=== PATIENT | male | born 1945 | race Caucasian/White ===

== ENCOUNTER → 2019-01-27 14:58 | Outpatient (CLI) | payer MEDICARE, OTHER, SELFPAY ==
--- NOTE | 2019-01-27 15:00 | US_ITS ---
US scrotum HISTORY: Right-sided testicular pain and swelling ITS.REASON: SCROTAL SAC ENLARGEMENT ORDERING PHYSICIAN: West Oconnor MD PATIENT AGE: 73 years Comparison: None FINDINGS: There are large bilateral hydroceles. This makes evaluation of the testicles difficult. The right testicle is 4.4 x 2.2 x 3.8 cm. It was very difficult to demonstrate blood flow within the right testicle. Additional imaging performed with Valsalva did appear to demonstrate some blood flow in the right testicle. No obvious testicular mass. Palpable left testicle is 4.8 x 2.5 x 3.2 cm. No mass evident. Blood flow is present within the left testicle. The epididymides not well demonstrated. IMPRESSION Large bilateral hydroceles Difficulty in evaluation of the testicles. No obvious testicular mass. Blood flow within the right testicle was questionable.
== END ==
PROVIDERS: PCP Family Medicine; Visit Provider Family Medicine
DX: N50.89 Other specified disorders of the male genital organs (principal)
CPT/HCPCS: 76870

== ENCOUNTER → 2019-04-10 09:25 | Outpatient (CLI) | payer MEDICARE, OTHER, SELFPAY ==
--- NOTE | 2019-04-10 09:41 | XR_ITS ---
XR KUB HISTORY: ITS.REASON: ABNORMAL WEIGHT LOSS ORDERING PHYSICIAN: West Oconnor MD PATIENT AGE: 73 years COMPARISON: None FINDINGS: There is a mild amount of retained colonic feces. No intestinal obstruction apparent. Surgical clips are present in the right upper quadrant. There are multiple pelvic calcifications consistent with phleboliths. There has been total right hip prosthesis placement and a bipolar left hip prosthesis placement. IMPRESSION: No acute finding
--- NOTE | 2019-04-10 09:41 | XR_ITS ---
XR chest 2V HISTORY: ITS.REASON: ABNORMAL WEIGHT LOSS ORDERING PHYSICIAN: West Oconnor MD PATIENT AGE: 73 years COMPARISON: 01/09/2012 FINDINGS: The cardiomediastinal silhouette and pulmonary vascularity are within normal limits. There is a faint rounded opacity in the right apex overlying the first rib laterally and 8 mm. This could reduce to a developing pulmonary nodule or an overlying sclerotic lesion of the rib. Was not readily apparent on the previous exam. There are bilateral opacities overlying the lower lung zones consistent with nipple shadows. No acute bony abnormalities. IMPRESSION: No acute finding. Possible developing nodule versus rib lesion right apex. This could be better evaluated with CT if clinically desired.
[2019-04-10 09:54] LABS: Basophils % 0.6 % (0.1-2.0); Eosinophils # 0.2 K/mm3 (0.0-0.4); Eosinophils % 2.6 % (0.1-12.0); Hematocrit 45.4 % (42.0-52.0); Hemoglobin 15.2 g/dL (14.1-18.0); Lymphocytes # 1.6 K/mm3 (0.7-4.5); Lymphocytes % 22.9 % (10-50); Mean Corpuscular HGB Conc 33.4 g/dL (31.8-35.4); Mean Corpuscular Volume 89.6 fl (80-94); Monocytes # 0.4 K/mm3 (0.1-1.0); Monocytes % 6.5 % (1.7-9.3); Neutrophils # 4.6 K/mm3 (1.8-7.8); Neutrophils % 67.4 % (37.0-80.0); Platelet Count 211 K/mm3 (142-424); Red Blood Count 5.07 M/mm3 (4.60-6.20); Red Cell Distribution Width 12.5 % (11.5-17.5); White Blood Count 6.9 K/mm3 (4.8-10.8)
[2019-04-10 11:42] LABS: Alanine Aminotransferase 20 U/L (12-78); Albumin Level 3.5 gm/dL (3.4-5.0); Albumin/Globulin Ratio 1.1 (1.1-1.8); Alkaline Phosphatase 97 U/L (46-116); Amylase 45 U/L (25-115); Anion Gap 14.5 mEq/L (5-15); Aspartate Amino Transferase 15 U/L (15-37); Bilirubin,Total 0.5 mg/dL (0.2-1.0); Blood Urea Nitrogen 11 mg/dL (7-18); C-Reactive Protein 1.6 mg/L (0.0-0.9); Calcium 9.2 mg/dL (8.5-10.1); Carbon Dioxide 28 mmol/L (21.0-32.0); Chloride 102 mmol/L (98-107); Creatinine,Serum 0.98 mg/dL (0.70-1.30); Estimated Glomerular Filt Rate 75 ml/min (>60); GFR (African American) 90 ML/MIN (>60); Globulin 3.3 gm/dl (1.3-3.2); Glucose 94 mg/dL (74-106); Lipase 145 u/L (73-393); Potassium 4.5 mmoL/L (3.5-5.1); Prostate Specific Ag Screen 0.3 ng/mL (0.0-4.0); Sodium 140 mmol/L (136-145); Thyroid Stimulating Hormone 2.31 uIU/ml (0.358-3.740); Total Protein,Serum 6.8 gm/dL (6.4-8.2)
== END ==
PROVIDERS: PCP Family Medicine; Visit Provider Family Medicine
DX: R63.4 Abnormal weight loss (principal)
CPT/HCPCS: 36415; 71046; 74018; 80053; 82150; 83690; 84443; 85025; 86140; G0103

== ENCOUNTER → 2019-04-22 09:37 | Outpatient (CLI) | payer MEDICARE, OTHER, SELFPAY ==
[2019-04-22 10:55] LABS: Blood Urea Nitrogen 11 mg/dL (7-18); Creatinine,Serum 0.96 mg/dL (0.70-1.30); Estimated Glomerular Filt Rate 76 ml/min (>60); GFR (African American) 92 ML/MIN (>60)
== END ==
PROVIDERS: Visit Provider Family Medicine
DX: R91.1 Solitary pulmonary nodule (principal)
CPT/HCPCS: 36415; 82565; 84520

== ENCOUNTER → 2019-04-27 09:16 | Outpatient (CLI) | payer MEDICARE, OTHER, SELFPAY ==
--- NOTE | 2019-04-27 09:26 | CT_ITS ---
CT chest w con HISTORY: ITS.REASON: PULMONARY NODULES ORDERING PHYSICIAN: West Oconnor MD PATIENT AGE: 73 years COMPARISON: None TECHNIQUE: Axial images obtained following the administration of 75 mL of Optiray 350 . Sagittal, and coronal reformatted images are also generated and reviewed. All CT scans at the facility use one or more dose reduction, viz: automated exposure control, ma/kV adjustment per patient size (including targeted exams where dose is matched to indication, i.e. head), or iterative reconstruction technique. FINDINGS: No mediastinal or hilar mass or adenopathy. No evidence of aortic aneurysm or dissection. No central pulmonary embolus. There are coronary artery calcifications as well as calcifications of the aortic valve. There is a 7 mm noncalcified nodule in the right lower lobe axial image #53. The margins are somewhat obscured and slightly irregular. No previous exams are available for comparison at this institution. The remaining lungs are clear aside from minimal atelectatic or fibrotic changes in the left lower lobe. No effusions or infiltrates. No acute bony findings. There is mild diffuse thickening of the esophagus. Mild bilateral gynecomastia noted. IMPRESSION: 1. 7 mm noncalcified nodule right lower lobe is some minimal irregularity of the nodule. If there are old CTs available then please correlate with the size or presence of the nodule on previous exams. If no old exams are available then would recommend a [address] follow-up to confirm stability. 2. Mild diffuse thickening of the esophagus which may be related to esophagitis.
== END ==
PROVIDERS: PCP Family Medicine; Visit Provider Family Medicine
DX: R91.1 Solitary pulmonary nodule (principal)
CPT/HCPCS: 71260; Q9967

== ENCOUNTER → 2019-12-02 15:52 | Outpatient (CLI) | payer MEDICARE, OTHER, SELFPAY ==
[2019-12-02 18:48] LABS: Blood Urea Nitrogen 17 mg/dL (7-18); Creatinine,Serum 1.13 mg/dL (0.70-1.30); Estimated Glomerular Filt Rate 63 ml/min (>60); GFR (African American) 76 ML/MIN (>60)
== END ==
PROVIDERS: Visit Provider Family Medicine
DX: R91.1 Solitary pulmonary nodule (principal)
CPT/HCPCS: 36415; 82565; 84520

== ENCOUNTER → 2019-12-04 14:08 | Outpatient (CLI) | payer MEDICARE, OTHER, SELFPAY ==
--- NOTE | 2019-12-04 14:19 | CT_ITS ---
PROCEDURE: CT CHEST WO/W CON CLINCAL INDICATION: PULMONARY NODULE COMPARISON: CHESTW CT chest w con from 04/27/2019 TECHNIQUE: IV Contrast: 75ml Optiray 350 Axial images obtained with sagittal and coronal reformats. All CT scans at the facility use one or more dose reduction, viz: automated exposure control, ma/kV adjustment per patient size (including targeted exams where dose is matched to indication, i.e. head), or iterative reconstruction technique. FINDINGS: HEART,AORTA,PULMONARY ARTERIES there are extensive coronary calcifications. 4.3 centimeter ascending aortic aneurysm is noted without leakage. MEDIASTINAL AND HILAR STRUCTURES: No mediastinal or hilar mass evident. No dominant adenopathy. Calcified lymph nodes consistent with healed granulomatous disease are noted. There is some wall thickening in of the esophagus as before not significantly changed suggesting diffuse esophagitis. LUNGS: The previously described 7 millimeter noncalcified nodule in the right lower lobe is again noted and not significantly changed seen today on axial images 50 6-57 series 3. Calcified granuloma is seen in the right middle lobe on image 57. A 2 millimeter indeterminate pleural-based nodule is seen in the left upper lobe on image 27 not clearly present previously. Scarring is seen in the left lower lobe. No mass or consolidation. PLEURAL SPACES: No pleural effusion BONY STRUCTURES: No acute bony abnormalities apparent. LYMPH NODES: No enlarged lymph nodes evident. UPPER ABDOMEN: There is fatty infiltration of the liver. A 1.4 centimeter hypodensity is seen along the inferior-most aspect of the medial segment of the left hepatic lobe. Image 21 series 601. An indeterminate liver lesion or focus of additional fat infiltration would have to be considered. This area was not included in the field of view on the previous exam. Calcified hepatic and splenic granulomas are noted and there is postsurgical change from cholecystectomy. ADDITIONAL FINDINGS: No other significant abnormalities. IMPRESSION: Stable appearance of 7 millimeter right basilar pulmonary nodule. 4.3 centimeter ascending aortic aneurysm without dissection or leakage unchanged from previous exam. Extensive coronary calcifications. Mild esophageal wall thickening is described. 1.4 centimeter indeterminate hypodensity within the liver. Consider follow-up in 4-6 months. Dictated by: Major Fraser 12/04/2019 15:50 Electronically signed by Major Fraser in [place] 12/04/2019 15:50
== END ==
PROVIDERS: PCP Family Medicine; Visit Provider Family Medicine
DX: R91.1 Solitary pulmonary nodule (principal)
CPT/HCPCS: 71270; Q9967

== ENCOUNTER → 2020-06-09 08:55 | Outpatient (CLI) | payer MEDICARE, OTHER, SELFPAY ==
--- NOTE | 2020-06-09 08:59 | CT_ITS ---
PROCEDURE: CT ABDOMEN WO/W CON CLINICAL HISTORY: LIVER LESION Follow-up liver lesion COMPARISON: CT CHEST WO/W CON from 12/04/2019 TECHNIQUE: Exam is performed without and with contrast enhancement with dynamic post enhanced imaging Axial images obtained with sagittal and coronal reformats. All CT scans at the facility use one or more dose reduction, viz: automated exposure control, ma/kV adjustment per patient size (including targeted exams where dose is matched to indication, i.e. head), or iterative reconstruction technique. FINDINGS: The the there is calcification of the aortic valve and coronary artery calcifications are noted in the lung base. 7 mm right lower lobe nodule with 2 small satellite nodules adjacent once again noted unchanged. There is minimal ground-glass attenuation in the right lung base medially and in the lingula inferiorly. There is mild heterogeneous fatty liver replacement. Previously noted ill-defined area of decreased attenuation within the inferior aspect of the medial segment of left hepatic lobe is once again noted measuring approximately 1 cm. This is ill-defined and may be due to partial volume averaging artifact from fatty liver. No abnormal enhancement. No other abnormalities evident. There has been a prior cholecystectomy. The spleen, adrenal glands, and pancreas have an unremarkable appearance. There is mild ectasia of the infrarenal abdominal aorta at 2.3 cm with some mural plaque noted. Incidental note made of colonic diverticulosis. IMPRESSION: 1. No change in the ill-defined small hypodensity in the inferior aspect of the medial segment of left hepatic lobe and may be related to an area partial volume averaging artifact and fatty liver versus a stable nodule. Continued six-month follow-up suggested to confirm 1 year stability 2. Fatty liver 3. No change right lower lobe nodule. 4. Coronary artery and aortic valve calcifications Dictated by: Mikey Serrato MD 06/10/2020 08:44 Electronically signed by Mikey Serrato MD in [place] 06/10/2020 08:44
== END ==
PROVIDERS: PCP Family Medicine; Visit Provider Family Medicine
DX: K76.9 Liver disease, unspecified (principal)
CPT/HCPCS: 74170; Q9967

== ENCOUNTER → 2021-09-04 11:21 | Outpatient (CLI) | payer MEDICARE, OTHER, SELFPAY ==
[2021-09-04 12:06] LABS: Chloride 101 mmol/L (98-107); Potassium 5.3 mmoL/L (3.5-5.1); Sodium 140 mmol/L (136-145)
[2021-09-04 12:08] LABS: Alanine Aminotransferase 28 U/L (12-78); Albumin Level 4.9 g/dl (3.5-5.0); Albumin/Globulin Ratio 1.7 (1.1-1.8); Alkaline Phosphatase 77 U/L (38-126); Anion Gap 15.3 mEq/L (5-15); Aspartate Amino Transferase 43 U/L (17-59); Bilirubin,Total 1.3 mg/dl (0.2-1.3); Blood Urea Nitrogen 12 mg/dl (9-20); Carbon Dioxide 29 mmol/L (22.0-30.0); Estimated Glomerular Filt Rate 72 ml/min (>60); GFR (African American) 87 ML/MIN (>60); Globulin 2.9 g/dL (1.3-3.2); Total Protein,Serum 7.8 g/dl (6.3-8.2)
[2021-09-04 12:09] LABS: Chol/HDL Ratio 2.5 (1-3.5); Cholesterol 252 mg/dl (140-200); Glucose 105 mg/dl (74-100); HDL Cholesterol 100 mg/dl (40-60); Triglycerides 102 mg/dl (30-150); VLDL Cholesterol 20 mg/dL (0-40)
[2021-09-04 12:21] LABS: Direct LDL Cholesterol 136.63 mg/dL (100-129)
[2021-09-04 13:37] LABS: Prostate Specific Ag Screen 0.4 ng/ml (0.0-4.0)
== END ==
PROVIDERS: Visit Provider Family Medicine
DX: Z00.00 Encounter for general adult medical examination without abnormal findings (principal); Z12.5 Encounter for screening for malignant neoplasm of prostate; Z79.899 Other long term (current) drug therapy
CPT/HCPCS: 36415; 80053; 80061; G0103

== ENCOUNTER → 2021-09-12 09:47 | Outpatient (CLI) | payer MEDICARE, OTHER, SELFPAY ==
--- NOTE | 2021-09-12 09:52 | CT_ITS ---
PROCEDURE: CT CHEST WO/W CON CLINCAL INDICATION: THORACIC ASCENDING AORTIC ANEURYSM COMPARISON: CT CHESTW CT chest w con from 04/27/[address] CHEST WO/W CON from 12/04/2019 TECHNIQUE: IV Contrast: 75ml Isovue 370 Axial images obtained with sagittal and coronal reformats. All CT scans at the facility use one or more dose reduction, viz: automated exposure control, ma/kV adjustment per patient size (including targeted exams where dose is matched to indication, i.e. head), or iterative reconstruction technique. FINDINGS: HEART AND MEDIASTINAL STRUCTURES: There is ectasia of the ascending thoracic aorta measuring 4 x 4 cm. No evidence of aortic dissection. Coronary artery and aortic valve calcifications are noted. No evidence of pulmonary embolus. No mediastinal or hilar mass or adenopathy. LUNGS AND PLEURAL SPACES: No change in the 7 mm noncalcified nodule in the right lower lobe. Mild atelectatic changes are present in the right lower lobe posteriorly with some faint ground-glass attenuation. BONY STRUCTURES: Mild degenerative thoracic spine UPPER ABDOMEN: Small hiatal hernia. Prior cholecystectomy. ADDITIONAL FINDINGS: Mild gynecomastia IMPRESSION: 1. No change in the mild dilatation of the ascending aorta at 4 x 4 cm. 2. Coronary artery and aortic valve calcifications 3. Stable 7 mm right lower lobe nodule. There is some mild atelectatic and ground-glass changes in the right lung base posteriorly which is nonspecific. Dictated by: Mikey Serrato MD 09/13/2021 09:38 Mikey Serrato MD in [place] 09/13/2021 09:38
== END ==
PROVIDERS: PCP Family Medicine; Visit Provider Family Medicine
DX: I71.2 Thoracic aortic aneurysm, without rupture (principal)
CPT/HCPCS: 71270; Q9967

== ENCOUNTER → 2022-05-07 13:58 | Outpatient (CLI) | payer MEDICARE, OTHER, SELFPAY ==
--- NOTE | 2022-05-07 14:01 | CT_ITS ---
FINAL REPORT TECHNIQUE: Multiple axial CT sections were performed from the foramen magnum to the vertex. Coronal reformatted images were also obtained. Precontrast and postcontrast injection images were obtained. This study was performed with technique to keep radiation doses as low as reasonably achievable, (ALARA). Individualized dose reduction techniques using automated exposure control or adjustment of mA and/or kV according to the patient size were employed. CLINICAL HISTORY: CONFUSION FINDINGS: There is age-appropriate atrophy. There are findings consistent with mild chronic small vessel ischemic change. The ventricles are normal in size. There is no evidence of hemorrhage. No masses are identified. No extra-axial fluid collection is seen. There is mucosal thickening of the left sphenoid sinus. The sinuses are otherwise normal. No osseous abnormality is seen on the bone window images. Postcontrast images demonstrate no abnormal enhancement. IMPRESSION: Atrophy and mild small vessel ischemic change, otherwise unremarkable CT of the head with and without contrast. Mucosal thickening of the left sphenoid sinus. Reviewed, Interpreted and Dictated by Pablo Modi III, MD Transcribed by Janet Isidro Authenticated and . [facility]
== END ==
PROVIDERS: PCP Family Medicine; Visit Provider Physician Assistant
DX: G31.84 Mild cognitive impairment of uncertain or unknown etiology (principal)
CPT/HCPCS: 70470; Q9967

== ENCOUNTER → 2022-05-29 11:21 | Outpatient (CLI) | payer MEDICARE, OTHER, SELFPAY ==
[2022-05-29 12:43] LABS: Ethyl Alcohol < 10 mg/dl (0-10)
[2022-05-29 13:52] LABS: Vitamin B12 325 pg/mL (239-931)
[2022-05-29 13:53] LABS: Folate 5.62 ng/mL
[2022-05-30 12:17] LABS: Rapid Plasma Reagin Ab Titer Non Reactive (NonRea<1:1)
[2022-06-04 17:09] LABS: Vitamin B1 95.8 nmol/L (66.5-200.0)
== END ==
PROVIDERS: PCP Family Medicine; Visit Provider Nurse Practitioner Family
DX: G93.40 Encephalopathy, unspecified (principal)
CPT/HCPCS: 36415; 82607; 82746; 84425; 86592

== ENCOUNTER → 2022-06-05 08:48 | Outpatient (CLI) | payer MEDICARE, OTHER, SELFPAY ==
--- NOTE | 2022-06-05 08:48 | MR_ITS ---
FINAL REPORT TECHNIQUE: Multiplanar and multisequence imaging of the brain was obtained without contrast. CLINICAL HISTORY: acute confusion. EPISODE OF MEMORY LOSS 2 MONTHS AGO. FINDINGS: There is global cerebral atrophy with associated ex vacuo dilatation of the ventricles. There is no mass effect or midline shift. Small foci of periventricular and subcortical white matter are nonspecific. The ventricles are symmetric in size and configuration without hydrocephalus. The cerebellum and brainstem have a normal appearance. There are no areas of restricted diffusion on diffusion weighted images to suggest acute infarct. Soft tissues are without acute abnormality. IMPRESSION: No acute intracranial abnormality. Nonspecific T2 abnormality within the periventricular and subcortical white matter. Differential considerations include changes of chronic small vessel ischemia and demyelinating disease. Reviewed, Interpreted and Dictated by Peggy Victor MD Transcribed by Barbara Ho Authenticated and . [facility]
== END ==
PROVIDERS: PCP Family Medicine; Visit Provider Nurse Practitioner Family
DX: G93.40 Encephalopathy, unspecified (principal); R41.3 Other amnesia
CPT/HCPCS: 70551; 94762

== ENCOUNTER → 2022-07-03 12:50 | Outpatient (CLI) | payer MEDICARE, OTHER, SELFPAY ==
[2022-07-05 13:43] LABS: Antiparietal Cell Antibody 4.2 Units (0.0-20.0)
[2022-07-09 15:10] LABS: Methylmalonic Acid 175 nmol/L (0-378)
== END ==
PROVIDERS: PCP Family Medicine; Visit Provider Nurse Practitioner Family
DX: E53.8 Deficiency of other specified B group vitamins (principal); R00.2 Palpitations
CPT/HCPCS: 36415; 82131; 83516; 86340; 93270

== ENCOUNTER → 2022-08-01 13:53 | Outpatient (CLI) | payer MEDICARE, OTHER, SELFPAY | PROVIDERS: PCP Family Medicine; Visit Provider Nurse Practitioner Family | DX: G47.30 Sleep apnea, unspecified (principal); R53.83 Other fatigue | CPT/HCPCS: G0399 ==

== ENCOUNTER → 2022-08-23 06:49 | Outpatient (CLI) | payer MEDICARE, OTHER, SELFPAY ==
--- NOTE | 2022-08-23 | CA_ITS ---
APPROVED REPORT Exam: Pharmacologic Technologist: Alondra Butler, Ht: 5 ft 7 in Wt: 151 lbs BSA: 1.79 m2 HR: 56 bpm BP: 142/82 mmHg Rhythm: Sinus mendy, T wave abns Medical History Medical History: HTN, Hyperlipidemia Medications: Amlodipine,,,,, Omeprazole,,,,, Aspirin,,,,, Metoprolol Succinate,,,,, Vit B12,,,,, MeMANTINE,,,,, Pravastain,,,,, Cardiac Risk Factors: HTN, Hyperlipidemia, FHX of CAD Stress Test Details Test: LEXISCAN HR Resting HR: 68 bpm Max Heart Rate (APMHR): 141.101113 bpm Max HR Achieved: 76 bpm Target HR (85% APMHR): 119.777179 bpm % of APMHR: 53.90 Recovery HR: 66 bpm BP Resting BP: 142/82 mmHg Max BP: 161/86 mmHg Recovery BP: 155.0/90.0 mmHg ECG Resting ECG: sinus mendy, T wave abn Clinical Exercise duration: 04:04 min Highest Stage Achieved: Exercise capacity: 1.0 METs Stress ECG Conclusion During lexiscant pt did not experince any symptoms. No arrhtymias noted. No significant ST changes. Unremarkable lexiscan stress. Myoview images reported separately. Test Summary REST . . . . . . . Sitting REST 05:07 . . 68 . 142/ 82 . . Stage 1 01:00 . . 68 . . . . Stage 2 01:00 . . 67 . . . . Stage 3 01:00 . . 64 . 161/ 86 . . Stage 4 01:00 . . 72 . . . . Stage 4 01:04 . . 71 . . . Stop exercise at 04:04 RECOVERY 01:00 . . 66 . 137/ 83 . . RECOVERY 02:00 . . 66 . 155/ 90 . . RECOVERY 03:00 . . 58 . 142/ 79 . . RECOVERY 03:17 . . 62 . 142/ 79 . . Electronically signed by : Yang Cunningham MD 08/24/2022 09:00:42
--- NOTE | 2022-08-23 06:59 | NM_ITS ---
APPROVED REPORT Exam: Nuclear Stress Test Indication: bradycardia..thoracic aneurysm Patient Location: Outpatient Stress Tech: Alondra MOONEY Tech:LEONARD Spaulding RT(R)(N) Ht: 5 ft 7 in Wt: 158 lbs HR: 68 bpm BP: 142/82 mmHg BSA: 1.83 m2 TID: 1.14 BMI: 24.7 History: bradycardia..thoracic aneurysm Procedure: Patient received a 0.4 mg of intravenous Lexiscan, resting heart rate 68 bpm, resting blood pressure 142/82 mmHg, with Lexiscan maximum heart rate achived was 76 bpm which is Less than 85 % of the maximum predicted heart rate and blood pressure was 161/86 mmHg. With Lexiscan, patient denied any complaint of chest pain. Electrocardiogram Resting electrocardiogram shows sinus rhythm nonspecific ST-T changes, with Lexiscan there is less than 1.[address] segment depression noted from the baseline EKG. The EKG portion of the Lexiscan is nondiagnostic. Cardiac Stress and Resting SPECT Images: Cardiac Stress and Resting SPECT images were obtained using technetium 99m Myoview 30.6 mCi stress and 10.27 mCi at rest. Gated SPECT analysis of segmental wall motion and calculation of the ejection fraction also done. Prone images were also obtained. Cardiac stress and rest SPECT images show uniform myocardial activity without segmental perfusion abnormality, computer derived ejection fraction is 61% with no regional wall motion abnormality, right ventricle is mildly enlarged with normal contractility. Conclusion: 1. The EKG portion of the Lexiscan is nondiagnostic. 2. No scintigraphic evidence of reversible ischemia seen, computer derived ejection fraction is 61% with no regional wall motion abnormality, right ventricle is mildly enlarged with normal contractility. 3. Normal Lexiscan Myoview study. Electronically signed by : Yang Cunningham MD 08/24/2022 09:04:16
--- NOTE | 2022-08-23 08:28 | CT_ITS ---
FINAL REPORT CLINICAL HISTORY: thoracic aortic aneurysm COMPARISON: September 12, 2021 FINDINGS: Before and after the administration of intravenous contrast, axial images through the chest were performed by computed tomography. This study was performed with techniques to keep radiation doses as low as reasonably achievable, (ALARA). Individualized dose reduction techniques using automated exposure control or adjustment of mA and/or kV according to the patient's size were employed. There is no axillary adenopathy. There is no hilar or mediastinal adenopathy. The heart size is normal. The ascending aorta is stable measuring up to 4 cm. There is no pericardial or pleural effusion. Limited images of the upper abdomen demonstrate a small sliding-type hiatal hernia. The gallbladder is absent. A 7 mm right lower lobe nodule previously measured 7 mm. There is no new mass or pulmonary nodule. IMPRESSION: Stable ascending thoracic aorta. Stable 7 mm right lower lobe nodule. Reviewed, Interpreted and Dictated by Ho Barber MD Transcribed by Mauricio Ruiz Authenticated and [facility]
--- NOTE | 2022-08-23 08:36 | CA_ITS ---
FINAL REPORT TECHNIQUE: Real-time imaging was performed of the extracranial carotid arteries in transverse and longitudinal planes, with color duplex evaluation of blood flow velocity. Spectral analysis was performed. The cervical vertebral arteries were also examined. CLINICAL HISTORY: carotid bruit, AMS episode, Bradycardia FINDINGS: NASCET technique is utilized for stenosis evaluation. Right carotid system (centimeters/second): CCA: 56 ICA: Occluded Vertebral artery: Antegrade Left carotid system (centimeters/second): CCA: 82 ICA: 92 Vertebral artery: Antegrade ICA/CCA ratio: 1.77 Moderate plaque is identified at the bifurcation. IMPRESSION: Occlusion of the right ICA. No abnormal increased velocities. Reviewed, Interpreted and Dictated by Ho Barber MD Transcribed by Barbara Ho Authenticated and [facility]
--- NOTE | 2022-08-23 08:36 | CA_ITS ---
APPROVED REPORT EXAM: Comprehensive 2D, Doppler, and color-flow Echocardiogram Oil Filters Inspector: Maria Elena Phipps RT(R) Ht: 5 ft 7 in Wt: 151lbs BSA: 1.79 BP: 154/79 mmHg Indications: bradycardia, thoracic AA, HTN, fatigue 2D Dimensions LVOT 2.32 cm (M/F) 1.5-2.5 LVEF (Dias's) 69.80 % M: 52 - 72 LV Volume 93.80 mL M: 62 - 150 LV Volume Index 52.40 mL/m2 M: 34 - 74 LA Volume 20.20 mL LA Volume Index 11.28 mL/m2 (M/F) 16-34 M-Mode Dimensions RVDd 2.37 cm (0.9-2.6) LA Diam 3.71 cm (1.9-4.0) LVDd 4.51 cm (3.5-5.7) Ao Diam 2.95 cm (2.0-3.7) LVDs 3.22 cm (3.5-5.7) IVSd 0.64 cm (0.6-1.1) PWd 0.89 cm (0.6-1.1) EF (Teich) 55.20% FS 28.60% EDV (Teich) 92.90 mL ESV (Teich) 41.60 mL LV Diastology E Decel Time 187.00 (160-240 msec) E/A Ratio 0.9 Mitral Valve MV E Max Randal. 91.00 (40-130 cm/s) MV A Velocity 104.00 (40-130 cm/s) E/A Ratio 0.88 MV Decel. Time 187.00 (160-240 ms) MV PHT 55.00 ms Tricuspid Valve TR P. Velocity 274.00 cm/s RAP Estimate 15.00 mmHg RVSP 45.00 mmHg Left Ventricle Left atrium is mildly enlarged, left ventricle normal size mild concentric left ventricular hypertrophy, estimated ejection fraction 55% with no regional wall motion abnormality, grade 1 diastolic dysfunction seen with tissue Doppler evidence of raise left atrial pressure. Right Ventricle Right atrium and right ventricle are mildly enlarged with normal contractility. Aortic Valve Aortic valve is thickened and calcified without Doppler evidence of aortic stenosis or aortic insufficiency. Mitral Valve Mitral valve is grossly normal, there is trace mitral regurgitation. Tricuspid Valve Tricuspid valve grossly normal, there is trace tricuspid regurgitation, calculated right ventricular systolic pressure is 45 mmHg. Pulmonic Valve Pulmonic valve is poorly visualized. Great Vessels Aortic root is normal size. Inferior vena cava is normal size with normal inspiratory collapse. Pericardium No significant pericardial effusion noted. Conclusion 1. Mild biatrial normal, normal left ventricular size, mild concentric left ventricular hypertrophy, estimated ejection fraction 55% with no regional wall motion abnormality, grade 1 diastolic dysfunction seen without tissue Doppler evidence of raise left atrial pressure. 2. Mildly enlarged right ventricle with normal contractility. 3. Thickened and calcified aortic valve without Doppler evidence of aortic stenosis or aortic insufficiency. 4. Trace mitral and tricuspid regurgitation, calculated right ventricular systolic pressure is 45 mmHg. 5. No significant pericardial effusion. 6. Inferior vena cava is normal size with normal inspiratory collapse. Electronically signed by : Yang Cunningham MD 08/24/2022 12:59:52
[2022-08-23 10:16] LABS: Blood Urea Nitrogen 10 mg/dl (9-20); Estimated Glomerular Filt Rate 81 ml/min (>60); GFR (African American) 98 ML/MIN (>60)
== END ==
PROVIDERS: PCP Family Medicine; Visit Provider Physician Assistant
DX: I25.10 Atherosclerotic heart disease of native coronary artery without angina pectoris; I10 Essential (primary) hypertension; R00.1 Bradycardia, unspecified; I71.20 Thoracic aortic aneurysm, without rupture, unspecified; R09.89 Other specified symptoms and signs involving the circulatory and respiratory systems; R41.3 Other amnesia
CPT/HCPCS: 71270; 78452; 82565; 84520; 93017; 93306; 93880; A9502; J2785; Q9967

== ENCOUNTER 2024-11-06 10:00 | Outpatient (RCR) | payer MEDICARE, OTHER, SELFPAY ==
--- NOTE | 2024-09-22 12:10 | [facility].PTOPEV ---
PT Outpatient Evaluation Rehab PT Outpatient Evaluation Start: 09/22/24 10:02 Freq: Status: Active Protocol: Document 09/22/24 10:02 DEE (Rec: 09/22/24 12:03 DEE [id number]) E-signed By Janesas Cook, PT Outpatient Therapy Subjective History Subjective History This is an initial PT evaluation for 79 y/o male, Hero Lanza, who presents to PT with referral impaired balance and leg weakness. Pt's present throughout evaluation and helped provide history. Functional mobility: Independent with household ambulation using SPC (and sometimes a baseball bat). Pt is retired and does not drive. Has steps in home and is IND with those using HRs. Requires GYMNASTIC TEACHER with community ambulation . Pt's works fulltime. Falls: One fall off of the front porch in past year. PMH: Thoracic aortic aneurysm, hypertension, mild dementia diagnosed 2 years ago, memory loss, Carotid bruit, Coronary artery calcification seen on CAT scan, Sinus bradycardia, bilateral hip replacements, New diagnosis of cancer in past 12 No months? Chief Complaint Gives out/Unstable,Weakness Symptom Description Constant and Continuous Hip/Knee Eval Gait Observation General Gait Pattern Observation Decrease Stride Lngth (R), Decrease Stride Lngth (L) Assistive Device Assistive Devices Straight Cane MMT left Hip Flexion Strength Grade 4- Good- Hip Abduction Strength Grade 4 Good Hip Adduction Strength Grade 4 Good Hip Extension Strength Grade 4- Good- Knee Extension Strength Grade 4 Good Knee Flexion Strength Grade 4 Good right Hip Flexion Strength Grade 4 Good Hip Abduction Strength Grade 4 Good Hip Adduction Strength Grade 4 Good Hip Extension Strength Grade 4 Good Knee Extension Strength Grade 4 Good Knee Flexion Strength Grade 4 Good Balance Eval Timed Up and Go Test 1. Is the Timed Up and Go test result > yes or = to 12 seconds? [place]berg Feet Together/Eyes open/Stable Surface pass Feet Together/Eyes Closed/Stable Surface pass Feet Together/Eyes open/Unstable Surface pass Feet Together/Eyes Closed/Unstable fail Surface Dynamic Gait Index Test Protocol Gait Level Surface Mild Impairment Query Text: Instructions: Walk at your normal speed from here to the next ton (20'). Grading: Ton the lowest category that applies. Change in Gait Speed Mild Impairment Query Text: Instructions: Begin walking at your normal pace (for 5'), when I tell you go , walk as fast as you can (for 5'). When I tell you slow , walk as slowly as you can (for 5'). Grading: Ton the lowest category that applies. Gait with Horizontal Head Turns Moderate Impairment Query Text: Instructions: Begin walking at your normal pace. When I tell you to look right , keep walking straight, but turn you head to the right. Keep looking to the right unit I tell you look left , then keep walking straight and turn your head to the left. Keep your head to the left until I tell you look straight , then keep walking straight, but return you head to the center. Grading: Ton the lowest category that applies. Gait with Vertical Head Turns Moderate Impairment Query Text: Instructions: Begin walking at your normal pace. When I tell you to look up , keep walking staight, but tip your head up. Keep looking up until I tell you to look down , then keep walking straight and tip your head down. Keep your head down until I tell you look straight , then keep walking straight, but return your head to the center. Grading: Ton the lowest category that applies. Gait and Pivot Turn Moderate Impairment Query Text: Instructions: Begin walking at your normal pace. When I tell you turn and stop , turn as quickly as you can to face the opposite direction and stop. Grading: Ton the lowest category that applies. Step Over Obstacle Moderate Impairment Query Text: Instructions: Begin walking at your normal speed. When you come to the shoebox, step over it, not around it and keep walking. Grading: Ton the lowest category that applies. Step Around Obstacles Mild Impairment Query Text: Instructions: Begin walking at normal speed. When you come to the first cone (about 6' away), walk around the right side of it. When you come to the second cone (6' past first cone), walk around it to the left. Grading: Ton the lowest category that applies. Steps Moderate Impairment Query Text: Instructions: Walk up these stairs as you would at home. At the top, turn around and walk down. Grading: Ton the lowest category that applies. Scoring Dynamic Gait Index Score 11 Miscellaneous Dx PT Eval Objective Objective TU seconds with SPC 5 x STS: 15 seconds with SPC DGI: 11 points with SPC Romberg: Fail eyes closed uneven surface Miscellaneous Goals Short Term Goals In 4 weeks, pt will: 1) Demo tandem stance for 10 seconds without UE support to improve functional balance 2) Pass Uneven eyes closed on Romberg 3) Improve DGI by 2 points 4) Improve TUG test to 16 seconds using LRAD 5) Demo 10 STS transitions with good eccentric control and no LOB on any reps. 6) Verbalize IND with HEP Radar Tester Goals In 8 weeks, pt will: 1) Demo SLS for 8 seconds without UE support to show improved functional balance 2) Improve DGI by 4 points to improve safety with ambulation . 3) Improve TUG test to 12 seconds to improve functional mobility and decrease fall risk 4) Improve 5xSTS to 12 seconds 5) Verbalize IND with advanced HEP Outpatient Therapy Assessment Impairments Problems/Impairmments Impaired Strength,Impaired Endurance,Impaired Transfers, Impaired Gait Pattern,Impaired Walking,Impaired Standing, Impaired Lifting,Impaired Stair Climbing,Impaired Incline Stepping,Impaired Stepping on Uneven Surface, Impaired Recreational Activities,Impaired DGI Score, Impaired TUG Time Prognosis Rehab Potential Good Comment Pt is a pleasant 79 y/o male who presents with impaired gait, static and dynamic standing balance, and impaired BLE strength. Pt scored as a fall risk with all balance objective measure. Pt would benefit from skilled OP PT to address deficits and decrease fall risk. Clinical Impression Consistent with Diagnosis Yes Outpatient Therapy Plan of Care Treatment Plan May Include Therapeutic Exercise Including Home Yes Exercise Program Manual Therapy Techniques Yes Neuromuscular Re-education Yes Therapeutic Activities to Return to Yes Previous Functional/Work Level Gait Training Yes ADL/Self Care Education Yes Eval/Re-Eval Yes Frequency Times per week 2-3 times a week Duration Number of Weeks 6-8 weeks Addendums This patient is a candidate for social No or vocational rehab? Patient/Guardian verbally acknowledges Yes understanding of treatment program and consents to further treatment? Patient/Guardian verbally acknowledges Yes understanding of diagnosis, prognosis and goals for treatment? Eval Complexity PT Charges 63080 - Moderate Complexity Shoulder/Elbow Eval Shoulder Objective Measurements Elbow Objective Measurements PHYSICIAN CERTIFICATION: I certify the specified therapy services for Hero Lanza are required, authorized, and reviewed every 30 days.
== END 2024-11-06 23:59 | disposition home or self-care (01) ==
LOC: PT 10:00
PROVIDERS: PCP Family Medicine; Visit Provider Physician Assistant
DX: R26.89 Other abnormalities of gait and mobility (principal)
CPT/HCPCS: 97110; 97163; 97530